=== PATIENT | male | born 1990 | race African-American/Black ===

== ENCOUNTER 2025-01-15 14:48 | Emergency (ER) | payer MEDICAID ==
[~2025-01-15] VITALS: Ht 182.9 cm; Wt 91.0 kg
[~2025-01-15 14:48] MED LIST: HYDR25TA PO; INSU100V43; LABE300T36 PO; LEVO50TA8 PO; LINE600T14 PO; NIFE90TA60 PO; OLAN5TAB74 PO; PYRI-9 PO; SITA100T11 PO
[2025-01-15 14:51] VITALS: O2SAT 99
[2025-01-15] MEDS ORDERED: LOPERAMIDE HCL 2MG CAPSULE PO ONE (15:30)
[2025-01-15 15:41] VITALS: TEMP 37; O2SAT 98
[2025-01-15 15:50] LABS: BASOPHILS % 0.7 % (0.0-2.0); EOSINOPHILS % 3.5 % (0.0-5.0); HEMATOCRIT. 33.2 % (42.0-52.0); HEMOGLOBIN. 10.5 g/dL (14.0-18.0); LYMPHOCYTES % 19.3 % (20.0-50.0); MEAN PLATELET VOLUME 9.0 fl (7.4-10.4); MONOCYTES % 4.5 % (2.0-8.0); NEUTROPHILS % 72.0 % (40.0-76.0); PLATELET 210 x1000/uL (130-400); RED BLOOD CELL COUNT 4.16 mill/uL (4.7-6.1); RED CELL DISTRIBUTION WIDTH 19.8 % (11.6-14.6)
[2025-01-15] MEDS: LOPERAMIDE HCL 2MG CAPSULE PO SCH (15:50)
[2025-01-15] MEDS: SODIUM CHLORIDE 0.9% 1,000 ML IV ONE ×2 (15:51→16:38)
[2025-01-15 16:03] LABS: UREA NITROGEN BLOOD 56.0 mg/dL (9-23)
[2025-01-15 16:07] LABS: CREATININE 4.8 mg/dL (0.6-1.3)
[2025-01-15] MEDS: INSULIN REGULAR (HUMULIN R) 1000UNITS/10ML VIAL IV SCH (16:49)
[2025-01-15] MEDS: SODIUM ZIRCONIUM CYCLOSILICATE 10GM/PACKET PO SCH (16:50)
[2025-01-15 17:45] VITALS: BP 163/107; PULSE 101; RESP 18; TEMP 98.60
== END 2025-01-15 18:23 | disposition left against medical advice (07) ==
LOC: ER 14:48 → CMPBEDREQ 01-16 07:30
DX: N17.9 Acute kidney failure, unspecified (principal); E11.65 Type 2 diabetes mellitus with hyperglycemia; I10 Essential (primary) hypertension; Z79.84 Long term (current) use of oral hypoglycemic drugs; Z79.899 Other long term (current) drug therapy
CPT/HCPCS: 80048; 82010; 82962; 85025; 36415; 96361; 96374; 99283; Z7610; J1815; J7030; A4606